=== PATIENT | female | born 1950 | race Caucasian/White ===

== ENCOUNTER → 2017-10-11 | Outpatient (CLI) | payer OTHER, MEDICARE ==
[~2017-10-11] MED LIST: CALC600T4 PO; CYCL10TA PO; LYSI1000 PO; PERC5TAB12 PO; RALO60 PO; VITA1000 PO
== END ==
LOC: HORT 22:41
PROVIDERS: ATTEND Nurse Practitioner Family
DX: S32.040D Wedge compression fracture of fourth lumbar vertebra, subsequent encounter for fracture with routine healing (principal); V49.49XD Driver injured in collision with other motor vehicles in traffic accident, subsequent encounter
CPT/HCPCS: L1050